=== PATIENT | male | born 1940 | race Caucasian/White ===

== ENCOUNTER 2022-03-06 15:10 | Emergency (ER) | payer MEDICARE, BC | END 2022-03-06 19:15 | disposition home or self-care (01) | LOC: JD.ED 15:10 | DX: R51.9 Headache, unspecified (principal); R25.1 Tremor, unspecified | CPT/HCPCS: 36415; 70450; 70450-26; 80053; 83735; 84484; 85025; 93005; 99284 ==

== ENCOUNTER 2024-07-16 16:40 | Emergency (ER) | payer MEDICARE, BC ==
[2024-07-16 17:58] LABS: BASOPHILS PERCENT AUTO 0.3 % (0.0-1.0); EOSINOPHILS PERCENT AUTO 1.2 % (0.0-6.0); HEMATOCRIT 36.3 % (42.0-52.0); HEMOGLOBIN 12.7 gm/dl (14.0-18.0); LYMPHOCYTES ABSOLUTE AUTO 0.8 K/mm3 (1.0-4.8); LYMPHOCYTES PERCENT AUTO 22.4 % (24.0-44.0); MEAN CORPUSCULAR HEMOGLOBIN 30.8 pg (28.0-32.0); MEAN CORPUSCULAR VOLUME 87.9 fl (83.0-99.0); MEAN PLATELET VOLUME 10.1 fl (9.4-12.4); MONOCYTES ABSOLUTE AUTO 0.3 K/mm3 (0.0-0.8); MONOCYTES PERCENT AUTO 9.6 % (0.0-8.0); NEUTROPHILS ABSOLUTE AUTO 2.2 K/mm3 (1.8-7.7); NEUTROPHILS PERCENT AUTO 66.5 % (41.0-71.0); PLATELET COUNT,PLT 117 K/mm3 (150-400); RED BLOOD CELL COUNT 4.13 M/mm3 (4.52-5.90); WHITE BLOOD CELL COUNT,WBC 3.35 K/mm3 (3.9-11.3)
[2024-07-16] MEDS: Sodium Chloride 0.9% 1,000 ML IV ONE (18:03)
[2024-07-16] MEDS: Piperacillin/Tazobactam 4.5 GM in Sodium Chloride 0.9% 100 ML IV ONE (18:04)
[2024-07-16] MEDS: Sodium Chloride 0.9% 10 ML Syringe FLUSH PRN (18:04)
[2024-07-16 18:12] LABS: A/G RATIO 1.1 (1-2); ALBUMIN 3.2 g/dl (3.4-5.0); ANION GAP 12.5 (5-15); BILIRUBIN TOTAL 0.6 mg/dL (0.2-1.0); BUN/CREATININE RATIO 20.7 (14-18); CREATININE 1.4 mg/dL (0.7-1.3); EST CRCL DRUG DOSING (CG) 39.11 mL/min; POTASSIUM,K 3.5 mEq/L (3.5-5.1); PROTEIN TOTAL,TP 6.1 g/dl (6.4-8.2)
== END 2024-07-16 19:30 ==
LOC: JD.ED 16:40
DX: K63.1 Perforation of intestine (nontraumatic) (principal); I10 Essential (primary) hypertension; K21.9 Gastro-esophageal reflux disease without esophagitis; Z79.899 Other long term (current) drug therapy
CPT/HCPCS: 36415; 80053; 83605; 85025; 86850; 86900; 86901; 87040; 96365; 99284; J2543; J7030